=== PATIENT | male | born 1960 | race Caucasian/White ===

== ENCOUNTER 2020-01-18 20:23 | Observation (INO) | payer SELFPAY ==
[~2020-01-18] VITALS: Ht 165.1 cm; Wt 70.8 kg
--- NOTE | 2020-01-18 20:25 | NUR ---
PT TO ROOM FROM . BROUGHT TO ER BY EMPLOYER. PT DYSPNEIC/COUGHING. TO ROOM VIA W/C.
[2020-01-18 20:57] LABS: HEMATOCRIT 42.7 % (39.0-50.0); HEMOGLOBIN 14.7 g/dl (14.0-18.0); IMMATURE GRANULOCYTES 0.2 % (0.0-5.0); MEAN CELL VOLUME 94.1 fL CALC (80.0-100.0); MEAN CORPUSCULAR HGB 32.4 pG CALC (26.0-32.0); MEAN CORPUSCULAR HGB CONC 34.4 g/dL CAL (32.0-36.0); NEUT# 3.25 thou/uL (1.82-7.42); RED BLOOD COUNT 4.54 mill/uL (4.70-6.10); RED CELL DISTRI WIDTH 12.8 % (11.5-15.5)
[2020-01-18 21:32] LABS: ALBUMIN 4.1 g/dL (3.2-5.0); ALKALINE PHOSPHATASE 83 u/l (38-126); ANION GAP 11 (6-22 (CALC)); BILIRUBIN, TOTAL 0.5 mg/dL (0.0-1.4); BUN 13 mg/dL (9-20); BUN/CREATININE RATIO 19 (12-20 (CALC)); CARBON DIOXIDE 27 mmol/l (22-30); CHLORIDE 102 mmol/l (95-108); CREATININE 0.7 mg/dL (0.7-1.3); GFR > 60 ML/MIN (>=60 (CALC)); GFR FOR AFR.AMER. > 60 ML/MIN (>=60 (CALC)); POTASSIUM 3.8 mmol/l (3.5-5.1); SGOT/AST 44 u/l (17-59); SODIUM 136 mmol/l (137-146); TOTAL PROTEIN 7.5 g/dL (6.3-8.2)
--- NOTE | 2020-01-18 21:45 | NUR ---
RESPS EVEN, UNLABBORED. LUNGS CLEAR BILATT. PT STATES HE FEELS MUCH BETTER
--- NOTE | 2020-01-18 21:46 | NUR ---
Reassessment of patient completed. No distress noted.
--- NOTE | 2020-01-18 23:45 | NUR ---
TELEPHONE REPORT RECEIVED FROM Anika SNEED RN IN ED. ROOM 262 PREPARED TO RECEIVE PT.
--- NOTE | 2020-01-18 23:50 | NUR ---
PT ARRIVES TO UNIT AT 2350 VIA WC, ACCOMPANIED BY Anika SNEED RN, ADMITTED TO ROOM 262.
[2020-01-19 00:51] VITALS: BP 107/67
--- NOTE | 2020-01-19 02:00 | NUR ---
PT LAYING IN BED WITH EYES CLOSED, APPEARS TO BE SLEEPING COMFORTABLY. RESPIRATIONS REGULAR AND UNLABORED. NO APPARENT DISTRESS. CALL [facility] REMAINS WITHIN REACH.
[2020-01-19 04:45] VITALS: BP 107/61
[2020-01-19 04:50] LABS: ALBUMIN 3.5 g/dL (3.2-5.0); ALKALINE PHOSPHATASE 77 u/l (38-126); ANION GAP 8 (6-22 (CALC)); BILIRUBIN, TOTAL 0.4 mg/dL (0.0-1.4); BUN 14 mg/dL (9-20); BUN/CREATININE RATIO 21 (12-20 (CALC)); CALCULATED LDLCHOLESTEROL 107 mg/dL (62-129 (CALC)); CARBON DIOXIDE 26 mmol/l (22-30); CHLORIDE 105 mmol/l (95-108); CHOLESTEROL HDL RATIO 3.2 (<4.4 (CALC)); CREATININE 0.7 mg/dL (0.7-1.3); GFR > 60 ML/MIN (>=60 (CALC)); GFR FOR AFR.AMER. > 60 ML/MIN (>=60 (CALC)); HDL CHOLESTEROL 54 mg/dL (>=40); POTASSIUM 4.3 mmol/l (3.5-5.1); SGOT/AST 37 u/l (17-59); SODIUM 134 mmol/l (137-146); TOTAL CHOLESTEROL 173 mg/dl (0-199); TOTAL PROTEIN 6.6 g/dL (6.3-8.2); TOTAL TRIGLYCERIDES 59 mg/dl (30-149); VLDL CHOLESTROL 12 mg/dl (8-62 (CALC))
[2020-01-19 05:10] LABS: HEMATOCRIT 40.7 % (39.0-50.0); HEMOGLOBIN 14.1 g/dl (14.0-18.0); IMMATURE GRANULOCYTES 0.2 % (0.0-5.0); MEAN CELL VOLUME 93.3 fL CALC (80.0-100.0); MEAN CORPUSCULAR HGB 32.3 pG CALC (26.0-32.0); MEAN CORPUSCULAR HGB CONC 34.6 g/dL CAL (32.0-36.0); NEUT# 3.5 thou/uL (1.82-7.42); RED BLOOD COUNT 4.36 mill/uL (4.70-6.10); RED CELL DISTRI WIDTH 12.6 % (11.5-15.5)
--- NOTE | 2020-01-19 06:09 | NUR ---
PT RESTING IN BED WATCHING TV, STATES "MY BREATHING IS BETTER". DENIES NEEDS AT THIS TIME. CALL [facility] WITHIN REACH, AGREES TO CALL PRN.
[2020-01-19 08:10] VITALS: BP 125/68
--- NOTE | 2020-01-19 08:10 | NUR ---
ASSESSMENT IS COMPLETD: IV SITE IS FREE FROM REDNESS OR EDEMA. HR IS REG,PULSES ARE STRONG X4, ABD IS SOFT WITH ACTIVE BS. BREATH SOUNDS ARE WHEEZING AND DIMINSHED. TELE MONITOR #[id number]
--- NOTE | 2020-01-19 11:00 | NUR ---
REMOVED THE RAC IV SITE DUE TO BEING PAINFUL. ABLE TO FLUSH THE LEFT FA WITHOUT DIFFICULTY.
[2020-01-19 11:20] VITALS: BP 122/92
--- NOTE | 2020-01-19 12:00 | NUR ---
PT IS RELAXING IN BED WAITING FOR DISCHARGE/
[2020-01-19] MEDS ORDERED: ZITHROMAX250 MG PO (13:32)
[2020-01-19] MEDS ORDERED: FLEXERIL5 MG PO (13:34)
[2020-01-19] MEDS ORDERED: NAPROXEN500 MG PO (13:35)
[2020-01-19] MEDS ORDERED: TESSALON PER100 MG PO (13:35)
[2020-01-19] MEDS ORDERED: PREDNISONE10 MG PO (13:36)
[2020-01-19] MEDS ORDERED: PROAIR HFA108 MCG/AC IN (14:19)
--- NOTE | 2020-01-19 14:30 | NUR ---
IV SITE DISCONTINEUD CATHETER INTACT. NO REDNESS OR EDEMA.
--- NOTE | 2020-01-19 14:30 | NUR ---
Discharge instructions given. Patient verbalizes understanding of same. Discharged in stable condition via Wheelchair to Home with family. All belongings sent with pt.
--- NOTE | 2020-01-19 14:35 | NUR ---
DISCAHRGE INSTRUCTIONS GIVEN AND VERBALIZED UNDERSTANDING. PT CALLED A [employer] AND WAS TAKEN DOWNSTAIRS TOWAIT FOR THE CAB. PT WANTED TO WALK AROUND.
[2020-01-19 15:22] VITALS: BP 114/73
== END 2020-01-19 14:35 | disposition home or self-care (01) | DRG 192 ==
LOC: ED 20:23 → ED-I 23:10 → ED 23:24 → MS2 23:25
PROVIDERS: ADMIT Internal Medicine; ATTEND Internal Medicine
PROC: 3E02340 Introduction of Influenza Vaccine into Muscle, Percutaneous Approach (ICD-10-PCS; principal; 2020-01-19)
PROC: 3E0234Z Introduction of Serum, Toxoid and Vaccine into Muscle, Percutaneous Approach (ICD-10-PCS; 2020-01-19)
DX: J44.1 Chronic obstructive pulmonary disease with (acute) exacerbation (principal); R07.9 Chest pain, unspecified; F17.200 Nicotine dependence, unspecified, uncomplicated; Z23 Encounter for immunization; Z20.828 Contact with and (suspected) exposure to other viral communicable diseases
CPT/HCPCS: G0378; Q9967

== ENCOUNTER 2020-10-28 11:30 | Emergency (ER) | payer SELFPAY ==
[~2020-10-28 11:30] MED LIST: FLEXERIL5 MG PO; NAPROXEN500 MG PO; PREDNISONE10 MG PO; PROAIR HFA108 MCG/AC IN; TESSALON PER100 MG PO; ZITHROMAX250 MG PO
== END 2020-10-28 12:48 | disposition left against medical advice (07) | DRG 951 ==
LOC: ED 11:30 → LWOBS 12:48
DX: Z53.21 Procedure and treatment not carried out due to patient leaving prior to being seen by health care provider (principal)

== ENCOUNTER 2021-04-21 09:48 | Emergency (ER) | payer SELFPAY ==
[~2021-04-21] VITALS: Ht 165.1 cm; Wt 69.0 kg
[2021-04-21 10:03] VITALS: BP 129/111
[2021-04-21 10:08] VITALS: BP 99/67
[2021-04-21 10:30] VITALS: BP 123/77
[2021-04-21 11:36] VITALS: BP 112/61
[2021-04-21 12:01] VITALS: BP 107/65
[2021-04-21] MEDS ORDERED: CYCLOBENZAPRINE10 MG PO (12:23)
[2021-04-21 12:28] VITALS: BP 107/65
== END 2021-04-21 12:38 | disposition home or self-care (01) | DRG 552 ==
LOC: ED 09:48
DX: M54.6 Pain in thoracic spine (principal); M54.50 Low back pain, unspecified; J44.9 Chronic obstructive pulmonary disease, unspecified; F17.210 Nicotine dependence, cigarettes, uncomplicated